=== PATIENT | female | born 1980 | race Hispanic/Latino ===

== ENCOUNTER 2017-01-25 04:38 | Emergency (ER) | payer OTHER ==
[~2017-01-25] VITALS: Ht 157.5 cm; Wt 84.5 kg
[2017-01-25 04:43] VITALS: BP 129/83; PULSE 65; RESP 18; O2SAT 100
[2017-01-25] MEDS ORDERED: 0.9% Sodium Chloride 1,000 ML IV ONE (05:06)
[2017-01-25 05:38] LABS: Mean Corpuscular Volume 86.3 fL (81-100)
--- NOTE | 2017-01-25 06:02 | ED.REPORT ---
HPI- Female Date of Service Jan 25, 2017 ED Provider: Ruslan Moran MD The pt is 36 y/o female w/ a hx of diabetes, acute cholecystitis, oligomenorrhea , three c-sections and an appendectomy presenting to the ED complaining of lower abdominal pain. She is also experiencing mild vaginal bleeding but reports less blood than her normal period. The lower abdominal pain is similar to contractions while giving . Denies fever, dysuria, diarrhea, nausea. She had an two weeks ago and was at approximately 10 weeks gestation when the procedure was done. She felt completely normal before the . The was done at [facility] here in [facility]. Nursing Notes Stated Complaint: VAGINAL PAIN Chief Complaint: Female Abdominal Pain Nursing Notes Reviewed: Yes Allergies: Coded Allergies: No Known Allergies (Unverified , 01/25/17) No Active Prescriptions or Reported Meds General Time Seen by MD: 05:09 Chief Complaint Abdominal pain... (Suprapubic) Hx Obtained From: Patient Arrived By: Walk-in Sudden in Onset?: Yes Onset Occurred: Just prior to arrival Symptom Duration: Since onset Recent Healthcare: No recent hospitalization, Recent doctor visit Similar Sx Previous: Yes Past Medical History Past Medical History Notes: PCP: Dr. 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 Physical Exam Initial Vital Signs Vital Signs (First) Date Time Temp Pulse Resp B/P Pulse Ox O2 Delivery O2 Flow Rate FiO2 01/25/17 04:43 36.8 65 18 129/83 100 Room Air Initial VS: Reviewed General/Constitutional: Well-developed, Well-nourished Head / Eyes: Atraumatic, Normocephalic, PERRL ENT: Mucous membranes moist, Conjunctiva normal, No scleral icterus Neck: Supple, Non-tender, Full range of motion Respiratory: Breath sounds normal, Clear to auscultation, No respiratory distress Cardiovascular: Regular rate & rhythm, Heart sounds normal, Intact distal pulses Extremities: Vascular intact, Neuro intact, No swelling, No tenderness Skin: Warm, Dry, No cyanosis Neurologic: Alert, Oriented, Nonfocal Psychiatric: Mood/affect normal, Behavior normal, Normal thought content Female Genitourinary: Dispute Coordinator present, External genitalia NL Specula exam shows dark mucousy blood from cervix Cervical exam normal w/o erythema Bilaminar diffusely tender No overt cervical tenderness is present Abdomen: Soft Tenderness/Guarding/Rebound: Positive: Tender suprapubic Interpretation & Diagnostics PROCEDURE: US PELVIC SONOGRAM + TRANSVAGINAL SONOGRAM IMPRESSION: 1. Findings suspicious for retained products of conception, with 2.7 x 1.6 cm localized lesion within the endometrium demonstrating internal vascular flow. 2. Anterior fundal intramural fibroid measures up to 3.4 cm. Dictated by: Oscar Clay M.D. on 01/25/2017 at 8:32 Approved by: Oscar Clay M.D. on 01/25/2017 at 8:40 Lab Results Interpretation Result Diagram: 01/25/17 0515 01/25/17 0515 Test 01/25/17 05:15 01/25/17 07:55 White Blood Count 7.6th/mm3 (3.8-10.1) Red Blood Count 3.57mil/mm3 (3.90-5.20) Hemoglobin 10.0g/dL (12.0-15.6) Hematocrit 30.8% (35.0-46.0) Mean Corpuscular Volume 86.3fL (81-100) Mean Corpuscular Hemoglobin 28.0pg (27.0-35.0) Mean Corpuscular Hemoglobin Concent 32.5% (32.0-37.0) Red Cell Distribution Width 16.5% (12.3-15.4) Platelet Count 297bil/L (150-400) Sodium Level 140mEq/L (134-144) Potassium Level 3.5mEq/L (3.5-5.2) Chloride Level 105mEq/L (97-108) Carbon Dioxide Level 20mmol/L (18-29) Blood Urea Nitrogen 11mg/dL (6-20) Creatinine 0.52mg/dL (0.57-1.00) Estimat Glomerular Filtration Rate 193mL/min (>59) Glucose Level 142mg/dL (60-99) Calcium Level 8.7mg/dL (8.5-10.1) Total Bilirubin 0.2mg/dL (0.0-1.2) Aspartate Amino Transf (AST/SGOT) 20U/L (0-50) Alanine Aminotransferase (ALT/SGPT) 22U/L (0-32) Alkaline Phosphatase 84U/L (25-150) Total Protein 7.6g/dL (6.4-8.4) Albumin 3.6g/dL (3.4-5.0) HCG Beta Subunit 32.00mIU/mL Urine Color Yellow (YELLOW) Urine Appearance Hazy (CLEAR,HAZY) Urine pH 6.5 (5.0-8.0) Urine Specific Marks 1.025 (1.003-1.035) Urine Protein 30mg/dL (NEG,TRACE) Urine Glucose (UA) Negativemg/dL (NEGATIVE) Urine Ketones Negativemg/dL (NEGATIVE) Urine Occult Blood Large (NEGATIVE) Urine Nitrite Negative (NEGATIVE) Urine Bilirubin Small (NEGATIVE) Urine Ictotest Negative (Negative) Urine Urobilinogen Normalmg/dL (NORMAL) Urine Leukocyte Esterase Negative (NEGATIVE) Urine RBC >50/hpf (0-2) Urine WBC 0-5/hpf (0-5) Urine Epithelial Cells Few/hpf (NONE-MOD) Urine Crystals None seen (NONE SEEN) Urine Bacteria Few/hpf (NONE-FEW) Urine Hyaline Casts None/lpf (NONE) Urine Granular Casts None seen (NONE SEEN) Urine Waxy Casts None seen (NONE SEEN) Urine Red Blood Cell Casts None seen (NONE SEEN) Urine White Blood Cell Casts None seen (NONE SEEN) Urine Mucus Present (None Seen) Urine Trichomonas None seen (NONE SEEN) Urine Yeast None (NONE SEEN) Urinalysis Comment None Urine Culture Reflexed Not indicated Re-Eval/Medical Decision Source of Hx: Old records Re-Evaluation/Progress #1: Time of Eval: 08:07 Re-Evaluation/Progress Note: Discussed lab and imaging results and performed pelvic exam. Re-Evaluation/Progress #2: Time of Eval: 09:33 Re-Evaluation/Progress Note: Pt rechecked. F/U instructions and RTER warnings given. All questions addressed. Counseled Regarding: Diagnosis, Lab results, Need for follow-up, When/why to return to ED Discharge & Departure Impression: Primary Impression: Pelvic pain Disposition: Home Discharge Condition All VS Reviewed: Yes Condition: Stable Patient Instructions: Acute Abdominal Pain (ED) Additional Instructions: Thank for you entrusting us with your care today. You were diagnosed with pelvic pain. Your labs and ultrasound results show nothing serious or life threatening. Please return to the emergency department if you experience any new or worsening symptoms. I hope you feel better soon. Tylenol 1000 mg every 6 hours and ibuprofen 800 mg every 8 hours will be helpful to manage the pain. Call Friday to follow up with your doctor at scheduled regional clinics in the next few days. *Google Translate* Alee por confiar tu cuidado hoy. Le diagnosticaron dolor plvico. Radha resultados de laboratorio y ultrasonido no muestran nada grave ni amenazan la lalo. Por favor regrese al departamento de emergencias si experimenta sntomas nuevos o que empeoran. Espero que pronto te sientas mejor. Tylenol 1000 mg cada 6 horas y ibuprofeno 800 mg cada 8 horas ser til para controlar el dolor. Llame el lunes para darle seguimiento a laboy mdico en las clnicas regionales programadas en los prximos joseph. Referrals: Tea Murphy DO (PCP) Scribe Attestation Portions of this note were transcribed by Harsh Welsh. I, Dr. Moran personally performed the history, physical exam and medical decision-making; I reviewed and confirmed the accuracy of the information in the transcribed note. copies to: Tea Murphy Kirk H MD Jan 25, 2017 06:02 Harsh Welsh Jan 25, 2017 06:56
[2017-01-25 08:27] LABS: APPEARANCE,URINE HAZY (CLEAR,HAZY); COLOR,URINE YELLOW (YELLOW); OCCULT BLOOD,URINE LARGE (NEGATIVE); PH,URINE 6.5 (5.0-8.0); UROBILINOGEN,URINE NORMAL (NORMAL)
[2017-01-25 08:30] LABS: ICTOTEST,URINE NEGATIVE (Negative)
--- NOTE | 2017-01-25 08:42 | DRSVH ---
PROCEDURE: US PELVIC SONOGRAM + TRANSVAGINAL SONOGRAM INDICATIONS: 36 year-old female with possible retained products of conception. TECHNIQUE: Real-time scanning was performed of the pelvic organs, with image documentation. Additional endovagi nal scanning was necessary due to incomplete visualization of the adnexal and endometrial structures by transabdominal scanning. COMPARISON: [facility], US, US OB<14 WKS+OB TRANSVAG, 12/26/2016, 7:42. FINDINGS: Transabdominal scanning: Limited scanning through the kidneys shows no hydronephrosis. No pathologi c free abdominal or pelvic fluid. Endovaginal scanning: Uterus: Uterus is normal in size at 7.3 x 5.6 x 3.9 cm. The endometrium measures 6.3 mm in combined thickness. A more localized hyperechoic region is noted within the endometrium, and measuring 2.7 x 1.6 cm, demonstrating internal vascular flow on color Doppler interrogation. Anterior fundal intramu ral fibroid measures 3.4 x 3.1 x 2.5 cm. Ovaries: Both ovaries appear normal in size, measuring 2.3 x 1.9 x 1.7 cm on the right, and 1.6 x 1.6 x 1.6 cm on the left. IMPRESSION: 1. Findings suspicious for retained products of conception, with 2.7 x 1.6 cm localized lesion within the endometrium demonstrating internal vascular flow. 2. Anterior fundal intramural fibroid measures up to 3.4 cm. Dictated by: Oscar Clay M.D. on 01/25/2017 at 8:32 Approved by: Oscar Clay M.D. on 01/25/2017 at 8:40
[2017-01-25 09:14] VITALS: BP 101/56; PULSE 77; RESP 15; O2SAT 98
[2017-01-25 10:01] VITALS: BP 101/56; PULSE 77; RESP 15; O2SAT 98
== END 2017-01-25 10:01 | disposition home or self-care (01) ==
LOC: SED 04:38
DX: R10.2 Pelvic and perineal pain (principal); R10.30 Lower abdominal pain, unspecified; E11.9 Type 2 diabetes mellitus without complications
CPT/HCPCS: 36415; 76830; 76856; 80053; 81000; 84702; 85027; 87491; 87591; 96361; 96374; 99285; J1885; J7030